=== PATIENT | female | born 1960 | race Caucasian/White ===

== ENCOUNTER 2025-02-16 15:02 | Inpatient (IN) ==
[2025-02-16 15:36] VITALS: BMI 45.5
--- NOTE | 2025-02-16 15:41 | RAD ---
EXAM: CHEST, 1 VIEW HISTORY: CHEST PAIN; COMPARISON: None. TECHNIQUE: Chest x-ray single frontal view FINDINGS: Heart size and mediastinal contours are normal. The aorta maintains a tortuous configuration. Lungs are clear as are the pleural spaces. No free air or pneumothorax. No acute bony abnormality. Multilevel bridging osteophytes of the spine are typical of diffuse idiopathic skeletal hyperostosis. IMPRESSION: No acute radiographic abnormalities of the chest THIS IS AN ELECTRONICALLY VERIFIED FINAL REPORT 02/16/2025 3:37 PM - Electronically signed by Mark Saxena MD
--- NOTE | 2025-02-16 15:56 | EKG ---
Test Reason : pre-op Blood Pressure : */* mmHG Vent. Rate : 85 BPM Atrial Rate : 85 BPM P-R Int : 162 ms QRS Dur : 82 ms QT Int : 358 ms P-R-T Axes : 32 -31 26 degrees QTc Int : 426 ms Normal sinus rhythm Left axis deviation Minimal voltage criteria for LVH, may be normal variant ( R in aVL ) Anterolateral infarct , age undetermined Abnormal ECG No previous ECGs available Confirmed by William Hall MD ([id number]) on 02/16/2025 4:06:07 PM Referred By: Confirmed By: William Hall MD
[2025-02-16] MEDS: NS 250 ML IV 25 ML IV PRN (15:59)
[2025-02-16] MEDS: ZOSYN VIAL 3.375 GRAMS 3.375 G in NS 100 ML IV 100 ML IV ONE (15:59)
[2025-02-16 16:18] LABS: BASOPHILS # (AUTO) 0.1 X10^3/uL (0.0-0.1); BASOPHILS % (AUTO) 0.9 % (0.2-1.0); EOSINOPHILS # (AUTO) 0.6 x10^3/uL (0.0-0.2); EOSINOPHILS % (AUTO) 3.4 % (0.9-2.9); HEMATOCRIT 43.8 % (36.0-47.0); HEMOGLOBIN 14.4 g/dL (12.0-16.0); LYMPHOCYTES # (AUTO) 2.4 X10^3/uL (1.3-2.9); LYMPHOCYTES % (AUTO) 14.5 % (21.0-51.0); MEAN CORPUSCULAR HEMOGLOBIN 30.3 pg (27.0-34.0); MEAN CORPUSCULAR HGB CONC 32.9 g/dL (33.0-35.0); MEAN CORPUSCULAR VOLUME 92.1 fL (80.0-100.0); MEAN PLATELET VOLUME 8.2 fL (7.4-11.0); MONOCYTES % (AUTO) 6.3 % (0.0-13.0); NEUTROPHILS # (AUTO) 12.3 x10^3/uL (2.2-4.8); NEUTROPHILS % (AUTO) 74.9 % (42.0-75.0); PLATELET COUNT 312 X10^3/uL (150.0-450.0); RED BLOOD COUNT 4.76 X10^6/uL (3.5-5.4); RED CELL DISTRIBUTION WIDTH 14.9 % (11.6-16.5); WHITE BLOOD COUNT 16.4 X10^3/uL (3.6-10.0)
[2025-02-16 16:24] LABS: INR 1.06 (0.8-1.3)
[2025-02-16 16:29] LABS: ALANINE AMINOTRANSFERASE 30 Units/L (12-78); ALBUMIN 2.6 g/dL (3.4-5.0); ALKALINE PHOSPHATASE 103 Units/L (46-116); ASPARTATE AMINO TRANSFERASE 15 Units/L (15-37); BLOOD UREA NITROGEN 14 mg/dL (7-18); CALCIUM 9.3 mg/dL (8.5-10.1); CARBON DIOXIDE 27.2 mmol/L (21-32); CHLORIDE 99 mmol/L (98-107); COR CA(FOR HYPOALB) 10.4 mg/dL (8.5-10.1); COR NA(FOR HYPERGLY) 137 mmol/L (136-145); GLUCOSE 122 mg/dL (65-99); POTASSIUM 4.7 mmol/L (3.5-5.1); SODIUM 136 mmol/L (136-145); TOTAL PROTEIN 7.8 g/dL (6.4-8.2); eGFR NON BLACK RACES 53 (>60)
[2025-02-16 16:47] LABS: PLATELET MORPHOLOGY COMMENT NORMAL (NORMAL)
--- NOTE | 2025-02-16 17:32 | ED.ABDFE ---
HPI Time Seen Time Seen by Provider: 02/16/25 15:09 PCP Primary Care Physician: Luz Marina Shetty Complaint Doctors Chief Complaint Comments: 64 yo F, hx diveritculitis, had CT as outpt after having abd pain for 1 wk. PCP called pt told her she had free air in her abd, likely ruptured diverticulitis according to CT, advised to come straight to the ER. Chief Complaint:: Pt c/o LLQ pain that started on Thursday, she saw PCP on Thursday, treated for diverticulosis with cipro and tramadol. Pt describes pain as "excrutiating pain like I'm about to explode, constant," /, N/D, constipation, "sharp, stabbing" Self Treatment fo Chief Complaint: Pt only took 3 days of cipro d/t made her start vomiting, tramadol was not effective for pain relief COVID-19 Coronavirus risk:travel/contact w/high risk person: No Has patient experienced Coronavirus symptoms: No Source History Provided: Patient and Other Mode of arrival Mode of Arrival: Ambulatory Timing Onset of Chief Complaint: 02/10/25 PMH PMH Past Medical History: Yes Past Medical History: Diabetes, Dyslipidemia, Hypertension and Hypothyroidism Past Medical History Comment: diverticulosis Past Surgical History: Yes Surgical History: Ortho Surgery Family History History of Family Medical Conditions: Yes Family Medical History: Diabetes Mellitus and Hypertension Social History Does patient currently use any type of tobacco product: No Have you used tobacco products in the last 12 months: No Type of Tobacco Use: None Does any household member use tobacco: No Alcohol Use: None Do you use any recreational Drugs:: No Lives With: Spouse Lives Where: Home Travel Risk Coronavirus risk:travel/contact w/high risk person: No Has patient experienced Coronavirus symptoms: No Infectious screening In the last 2 months have you had wt loss of >10#?: NO Have you had fever, night sweats or hemotysis?: No Have you traveled outside the country in the last 6 months?: No Isolation: Standard ROS Review of Systems Constitutional: Chills; negative Fever Gastrointestinal/Abdominal: Abdominal Pain PE Vital Signs Vitals: Vital Signs Temperature 98.9 F Pulse Rate 69 Respiratory Rate 15 Blood Pressure 138/65 Blood Pressure 168/79 Blood Pressure 110/68 O2 Sat by Pulse Oximetry 100 General Limitations: No Limitations and Language Barrier General Appearance: Alert and In No Apparent Distress Head Head Exam: Normal Inspection Eyes Eye exam: Normal Appearance ENT ENT Exam: Normal Exam Neck Neck Exam: Normal Inspection Chest Chest Inspection: Normal Inspection Respiratory Respiratory Exam: Normal Lung Sounds Bilat Cardiovascular Cardiovascular Exam: Regular Rate and Normal Rhythm Abdominal Exam Abdominal Exam: Other (diffuse tenderness, tympanitic, +guarding and rebound) Rectal Rectal Exam: Deferred Back Back Exam: Normal Inspection Extremeties Extremities Exam: Normal Inspection Neurologic Neurological Exam: Alert and Oriented X3 Psychiatric Psychiatric Exam: Normal Affect and Normal Mood Skin Skin Exam: Warm, Dry and Intact ROR Labs Reviewed 02/16/25 16:00 02/16/25 16:00 Laboratory: WBC 16.4 X10^3/uL (3.6-10.0) H 02/16/25 16:00 RBC 4.76 X10^6/uL (3.5-5.4) 02/16/25 16:00 Hgb 14.4 g/dL (12.0-16.0) 02/16/25 16:00 Hct 43.8 % (36.0-47.0) 02/16/25 16:00 MCV 92.1 fL (80.0-100.0) 02/16/25 16:00 MCH 30.3 pg (27.0-34.0) 02/16/25 16:00 MCHC 32.9 g/dL (33.0-35.0) L 02/16/25 16:00 RDW 14.9 % (11.6-16.5) 02/16/25 16:00 Plt Count 312 X10^3/uL (150.0-450.0) 02/16/25 16:00 Plt Count Comment Adequate (ADEQUATE) 02/16/25 16:00 MPV 8.2 fL (7.4-11.0) 02/16/25 16:00 Neut % (Auto) 74.9 % (42.0-75.0) 02/16/25 16:00 Lymph % (Auto) 14.5 % (21.0-51.0) L 02/16/25 16:00 [place] % (Auto) 6.3 % (0.0-13.0) 02/16/25 16:00 Eos % (Auto) 3.4 % (0.9-2.9) H 02/16/25 16:00 Baso % (Auto) 0.9 % (0.2-1.0) 02/16/25 16:00 Neut # (Auto) 12.3 x10^3/uL (2.2-4.8) H 02/16/25 16:00 Lymph # (Auto) 2.4 X10^3/uL (1.3-2.9) 02/16/25 16:00 [place] # (Auto) 1.0 x10^3/uL (0.3-0.8) H 02/16/25 16:00 Eos # (Auto) 0.6 x10^3/uL (0.0-0.2) H 02/16/25 16:00 Baso # (Auto) 0.1 X10^3/uL (0.0-0.1) 02/16/25 16:00 Absolute Nucleated RBC 0.0 /100WBC 02/16/25 16:00 Total Counted 100 02/16/25 16:00 Neutrophils % (Manual) 80 % (39-76) H 02/16/25 16:00 Lymphocytes % (Manual) 14 % (13-43) 02/16/25 16:00 Monocytes % (Manual) 4 % (4-9) 02/16/25 16:00 Eosinophils % (Manual) 2 % (0-6) 02/16/25 16:00 Plt Morphology Comment Normal (NORMAL) 02/16/25 16:00 RBC Morphology Normal (NORMAL) 02/16/25 16:00 PT 13.6 SECONDS (11.8-14.3) 02/16/25 16:00 INR Target Range - 02/16/25 16:00 INR 1.06 (0.8-1.3) 02/16/25 16:00 APTT 26.1 SECONDS (22.9-36.5) 02/16/25 16:00 PTT Comment - 02/16/25 16:00 Sodium 136 mmol/L (136-145) 02/16/25 16:00 Corrected Sodium 137 mmol/L (136-145) 02/16/25 16:00 Potassium 4.7 mmol/L (3.5-5.1) 02/16/25 16:00 Chloride 99 mmol/L (98-107) 02/16/25 16:00 Carbon Dioxide 27.2 mmol/L (21-32) 02/16/25 16:00 BUN 14 mg/dL (7-18) 02/16/25 16:00 Creatinine 1.10 mg/dL (0.55-1.02) H 02/16/25 16:00 Est GFR (MDRD) Af Amer > 60 (>60) 02/16/25 16:00 Est GFR (MDRD) Non-Af 53 (>60) L 02/16/25 16:00 Glucose 122 mg/dL (65-99) H 02/16/25 16:00 Lactic Acid 1.1 mmol/L (0.4-2.0) 02/16/25 16:00 Calcium 9.3 mg/dL (8.5-10.1) 02/16/25 16:00 Corrected Calcium 10.4 mg/dL (8.5-10.1) H 02/16/25 16:00 Total Bilirubin 0.30 mg/dL (0.2-1.0) 02/16/25 16:00 AST 15 Units/L (15-37) 02/16/25 16:00 ALT 30 Units/L (12-78) 02/16/25 16:00 Alkaline Phosphatase 103 Units/L (46-116) 02/16/25 16:00 Total Protein 7.8 g/dL (6.4-8.2) 02/16/25 16:00 Albumin 2.6 g/dL (3.4-5.0) L 02/16/25 16:00 Globulin 5.2 g/dL (2.5-4.5) H 02/16/25 16:00 Albumin/Globulin Ratio 0.5 Ratio (1.1-2.1) L 02/16/25 16:00 Blood Type A POSITIVE 02/16/25 16:00 Antibody Screen Negative 02/16/25 16:00 Opioid Opioid Risk Tool Age (Taiwo box if 16-45): No History of Preadolescent Sexual Abuse: No Total: 0 Total Score Risk Category: Low Risk Copyright: Shawn CONNELLY predicting aberrant behaviors Discharge Plan Diagnosis Discharge Problem: Perforated diverticulum, Diverticulitis Discharge Plan Patient Disposition: 01 HOME, SELF-CARE Condition: Stable Prescriptions: No Action multivitamin Tablet 1 tab PO DAILY calcium 600 mg Capsule 600 mg PO BID albuterol sulfate 2.5 mg /3 mL (0.083 %) Solution For Nebulization 2.5 mg inhalation Q6H PRN citalopram [Celexa] 40 mg Tablet 40 mg PO DAILY promethazine 12.5 mg Tablet 12.5 mg PO Q6H PRN spironolactone 25 mg Tablet 25 mg PO DAILY carvedilol 3.125 mg Tablet 3.125 mg PO BID alprazolam [Xanax] 0.5 mg Tablet 0.5 mg PO BID PRN pantoprazole 40 mg Tablet,Delayed Release (Dr/Ec) 40 mg PO DAILY budesonide 0.5 mg/2 mL Suspension For Nebulization 0.25 mg inhalation BID bumetanide 1 mg Tablet 1 mg PO DAILY PRN montelukast 10 mg Tablet 10 mg PO HS albuterol 90 mcg/actuation Aerosol 90 mcg INHALATION Q6H PRN insulin lispro [Humalog KwikPen Insulin] 100 unit/mL Insulin Pen See Rx Instructions .ROUTE .COMPLEX Rx Instructions: take as directed cyclobenzaprine 5 mg Tablet 5 mg PO HS PRN Fish Oil 1,000 mg Capsule 1 cap PO BID rosuvastatin 10 mg tablet 10 mg PO QPM biotin 1 mg Tablet 1 mg PO DAILY cholecalciferol (vitamin D3) 50 mcg (2,000 unit) Capsule 50 mcg PO DAILY insulin degludec [Tresiba FlexTouch U-100] 100 unit/mL (3 mL) Insulin Pen 30 unit SUBCUT DAILY Jardiance 25 mg Tablet 25 mg PO DAILY ciprofloxacin HCl 500 mg tablet 500 mg PO BID Rx Instructions: started on 02/09/25 tramadol 50 mg tablet 50 mg PO Q8H PRN (Reason: pain) losartan 100 mg Tablet 100 mg PO DAILY insulin lispro 100 unit/mL insulin pen 10 unit SUBCUT TID thyroid (pork) [[place] Thyroid] 60 mg tablet 60 mg PO QAM Health Concerns: Post Hospitalization: new medications and changes needed to prevent readmission or further decline. Pt educated and given instructions on all concerns. Plan of Treatment: Continue with present treatment and follow up plan. Pt is to keep follow up appointment as instructed and take medications as ordered. Orders to Discharge Patient Discharge Orders: Transfer (Routine); Ordered 02/16/25 Ordered By: Ricco Forbes Follow ups/Referrals Follow ups/Referrals: LUZ MARINA SHETTY [Primary Care Provider] - 3 days Instructions Stand Alone Forms: Find Help Web Site, Post Hospital Follow Up Care
[2025-02-16] MEDS ORDERED: NS 250 ML IV 25 ML IV PRN (17:46)
[2025-02-16] MEDS ORDERED: BUMEX TAB 1 MG PO PRN (17:46)
[2025-02-16] MEDS ORDERED: PATIENT'S HOME MEDICATION (Alprazolam [Xanax] 0.5 mg Tablet) PO PRN (17:46)
[2025-02-16] MEDS: D5 1/2 NS 1,000 ML 1,000 ML IV SCH (18:28)
[2025-02-16] MEDS: FLAGYL IV PREMIX 500 MG BAG 500 MG/100 ML BAG IV SCH (18:28)
[2025-02-16] MEDS ORDERED: ALPRAZOLAM ODT PO PRN (19:26)
[2025-02-16] MEDS: PULMICORT NEB TX 0.5 MG NEB SCH (20:04)
[2025-02-16] MEDS: CALCIUM 600 MG PO SCH (20:16)
[2025-02-16] MEDS: MORPHINE SULFATE INJ 2 MG INJ IVP PRN (20:37)
[2025-02-16] MEDS: ZOFRAN INJ 4 MG VIAL IVP PRN (20:41)
[2025-02-16] MEDS: SINGULAIR TAB 10 MG PO SCH (20:46)
[2025-02-16] MEDS: COREG TAB 3.125 MG PO SCH (20:46)
[2025-02-16] MEDS: CRESTOR TAB 10 MG PO SCH (20:46)
[2025-02-16] MEDS ORDERED: PATIENT'S HOME MEDICATION (Insulin Lispro 100 unit/mL insulin pen) SUBCUT SCH (22:00)
[2025-02-16] MEDS: ZOSYN VIAL 2.25 GRAMS 2.25 G in NS 100 ML IV 100 ML IV SCH (23:00)
--- NOTE | 2025-02-17 05:22 | RAD ---
PROCEDURE: Abdomen 1 View.HISTORY: INTRA-ABDOMINAL FREE AIR ; DM, HTN SX: ORTHO .TECHNIQUE: AP supine view of the abdomen.COMPARISON: None.TECHNICAL QUALITY: Satisfactory.FINDINGS:Mild gas and feces throughout colon. No obstruction or ileus.No organomegaly.No abnormal calcifications.IMPRESSION:Nonspecific bowel gas pattern.THIS IS AN ELECTRONICALLY VERIFIED FINAL REPORT02/17/2025 5:19 AM - Electronically signed by Sidney Damico MD
[2025-02-17 05:47] LABS: BASOPHILS # (AUTO) 0.1 X10^3/uL (0.0-0.1); BASOPHILS % (AUTO) 0.5 % (0.2-1.0); EOSINOPHILS # (AUTO) 0.4 x10^3/uL (0.0-0.2); EOSINOPHILS % (AUTO) 2.4 % (0.9-2.9); HEMOGLOBIN 12.7 g/dL (12.0-16.0); LYMPHOCYTES # (AUTO) 2.3 X10^3/uL (1.3-2.9); LYMPHOCYTES % (AUTO) 15.7 % (21.0-51.0); MEAN CORPUSCULAR HEMOGLOBIN 30.5 pg (27.0-34.0); MEAN CORPUSCULAR HGB CONC 33.3 g/dL (33.0-35.0); MEAN CORPUSCULAR VOLUME 91.6 fL (80.0-100.0); MEAN PLATELET VOLUME 8.2 fL (7.4-11.0); MONOCYTES # (AUTO) 1.2 x10^3/uL (0.3-0.8); MONOCYTES % (AUTO) 8.2 % (0.0-13.0); NEUTROPHILS # (AUTO) 10.9 x10^3/uL (2.2-4.8); NEUTROPHILS % (AUTO) 73.2 % (42.0-75.0); PLATELET COUNT 288 X10^3/uL (150.0-450.0); RED BLOOD COUNT 4.15 X10^6/uL (3.5-5.4); RED CELL DISTRIBUTION WIDTH 14.9 % (11.6-16.5); WHITE BLOOD COUNT 14.9 X10^3/uL (3.6-10.0)
[2025-02-17 06:05] LABS: ALANINE AMINOTRANSFERASE 21 Units/L (12-78); ALKALINE PHOSPHATASE 84 Units/L (46-116); ASPARTATE AMINO TRANSFERASE 18 Units/L (15-37); BLOOD UREA NITROGEN 11 mg/dL (7-18); CALCIUM 8.9 mg/dL (8.5-10.1); CARBON DIOXIDE 24.6 mmol/L (21-32); CHLORIDE 102 mmol/L (98-107); COR CA(FOR HYPOALB) 10.5 mg/dL (8.5-10.1); COR NA(FOR HYPERGLY) 137 mmol/L (136-145); GLUCOSE 148 mg/dL (65-99); POTASSIUM 4.6 mmol/L (3.5-5.1); SODIUM 136 mmol/L (136-145); TOTAL PROTEIN 6.6 g/dL (6.4-8.2); eGFR NON BLACK RACES > 60 (>60)
[2025-02-17] MEDS: PULMICORT NEB TX 0.5 MG NEB ONE (07:57)
[2025-02-17] MEDS: HumaLOG SC SCH (07:58)
--- NOTE | 2025-02-17 08:15 | DR.PROGNOT ---
HOSPITAL PROGRESS NOTE Progress Note for Day of: Progress Note Date: 02/17/25 Chief Complaint Chief Complaint: less abdominal pain today , c/o nausea , no vomiting . no BM today . KUB showed no free air . WBC 14.9, Glucose 148 , Ca 10.4 , normal BUN/Creat . afebrile . LLQ tenderness with mild rebound .. BS hypoactive . Past Medical Family Social History Allergies: Allergies exenatide [From Bydureon BCise] Allergy (Verified 02/16/25 15:11) levothyroxine sodium [From Synthroid] Allergy (Verified 02/16/25 15:11) lisinopril Allergy (Verified 02/16/25 15:11) metformin Allergy (Verified 02/16/25 15:11) nitrofurantoin [From Macrodantin] Allergy (Verified 02/16/25 15:11) semaglutide [From Rybelsus] Allergy (Verified 02/16/25 15:11) sitagliptin [From Januvia] Allergy (Verified 02/16/25 15:11) Sulfa (Sulfonamide Antibiotics) [SULFA] Allergy (Verified 02/16/25 15:11) zolpidem [From Ambien] Allergy (Verified 02/16/25 15:11) liraglutide [From Victoza] Adverse Reaction (Verified 02/16/25 15:11) Vital Signs Vital Signs: Vital Signs Temperature 98.1 F Pulse Rate 76 Pulse Rate 95 Pulse Rate 77 Pulse Rate 78 Pulse Rate 78 Pulse Rate 77 Pulse Rate 79 Pulse Rate 79 Pulse Rate 75 Pulse Rate 81 Pulse Rate 83 Pulse Rate 81 Pulse Rate 81 Pulse Rate 81 Pulse Rate 81 Pulse Rate 84 Pulse Rate 84 Pulse Rate 83 Pulse Rate 88 Pulse Rate 88 Pulse Rate 87 Respiratory Rate 13 Respiratory Rate 32 Respiratory Rate 16 Respiratory Rate 20 Respiratory Rate 22 Respiratory Rate 16 Respiratory Rate 19 Respiratory Rate 15 Respiratory Rate 15 Respiratory Rate 12 Respiratory Rate 20 Respiratory Rate 17 Respiratory Rate 15 Respiratory Rate 16 Respiratory Rate 18 Respiratory Rate 18 Respiratory Rate 17 Respiratory Rate 15 Respiratory Rate 35 Respiratory Rate 21 Respiratory Rate 16 Blood Pressure 116/53 O2 Sat by Pulse Oximetry 96 O2 Sat by Pulse Oximetry 97 O2 Sat by Pulse Oximetry 94 O2 Sat by Pulse Oximetry 94 O2 Sat by Pulse Oximetry 93 O2 Sat by Pulse Oximetry 93 O2 Sat by Pulse Oximetry 92 O2 Sat by Pulse Oximetry 94 O2 Sat by Pulse Oximetry 93 O2 Sat by Pulse Oximetry 95 O2 Sat by Pulse Oximetry 94 O2 Sat by Pulse Oximetry 92 O2 Sat by Pulse Oximetry 93 O2 Sat by Pulse Oximetry 93 O2 Sat by Pulse Oximetry 93 O2 Sat by Pulse Oximetry 93 O2 Sat by Pulse Oximetry 92 O2 Sat by Pulse Oximetry 93 O2 Sat by Pulse Oximetry 92 O2 Sat by Pulse Oximetry 92 O2 Sat by Pulse Oximetry 92 Physical Exam Oriented: Normal Eyes: Normal Ear: Normal Nose: Normal Throat: Normal Respiratory: Normal Cardiovascular: Normal GI:Auscultation: Decreased GI: Tenderness: LLQ (mild rebound .) Speech Pattern: Clear and Appropriate Laboratory and Diagnostics 02/17/25 05:10 02/17/25 05:10 Labs: Laboratory WBC 14.9 X10^3/uL (3.6-10.0) H 02/17/25 05:10 RBC 4.15 X10^6/uL (3.5-5.4) 02/17/25 05:10 Hgb 12.7 g/dL (12.0-16.0) 02/17/25 05:10 Hct 38.0 % (36.0-47.0) 02/17/25 05:10 MCV 91.6 fL (80.0-100.0) 02/17/25 05:10 MCH 30.5 pg (27.0-34.0) 02/17/25 05:10 MCHC 33.3 g/dL (33.0-35.0) 02/17/25 05:10 RDW 14.9 % (11.6-16.5) 02/17/25 05:10 Plt Count 288 X10^3/uL (150.0-450.0) 02/17/25 05:10 Plt Count Comment Adequate (ADEQUATE) 02/16/25 16:00 MPV 8.2 fL (7.4-11.0) 02/17/25 05:10 Neut % (Auto) 73.2 % (42.0-75.0) 02/17/25 05:10 Lymph % (Auto) 15.7 % (21.0-51.0) L 02/17/25 05:10 [place] % (Auto) 8.2 % (0.0-13.0) 02/17/25 05:10 Eos % (Auto) 2.4 % (0.9-2.9) 02/17/25 05:10 Baso % (Auto) 0.5 % (0.2-1.0) 02/17/25 05:10 Neut # (Auto) 10.9 x10^3/uL (2.2-4.8) H 02/17/25 05:10 Lymph # (Auto) 2.3 X10^3/uL (1.3-2.9) 02/17/25 05:10 [place] # (Auto) 1.2 x10^3/uL (0.3-0.8) H 02/17/25 05:10 Eos # (Auto) 0.4 x10^3/uL (0.0-0.2) H 02/17/25 05:10 Baso # (Auto) 0.1 X10^3/uL (0.0-0.1) 02/17/25 05:10 Absolute Nucleated RBC 0.0 /100WBC 02/17/25 05:10 Total Counted 100 02/16/25 16:00 Neutrophils % (Manual) 80 % (39-76) H 02/16/25 16:00 Lymphocytes % (Manual) 14 % (13-43) 02/16/25 16:00 Monocytes % (Manual) 4 % (4-9) 02/16/25 16:00 Eosinophils % (Manual) 2 % (0-6) 02/16/25 16:00 Plt Morphology Comment Normal (NORMAL) 02/16/25 16:00 RBC Morphology Normal (NORMAL) 02/16/25 16:00 PT 13.6 SECONDS (11.8-14.3) 02/16/25 16:00 INR Target Range - 02/16/25 16:00 INR 1.06 (0.8-1.3) 02/16/25 16:00 APTT 26.1 SECONDS (22.9-36.5) 02/16/25 16:00 PTT Comment - 02/16/25 16:00 Sodium 136 mmol/L (136-145) 02/17/25 05:10 Corrected Sodium 137 mmol/L (136-145) 02/17/25 05:10 Potassium 4.6 mmol/L (3.5-5.1) 02/17/25 05:10 Chloride 102 mmol/L (98-107) 02/17/25 05:10 Carbon Dioxide 24.6 mmol/L (21-32) 02/17/25 05:10 BUN 11 mg/dL (7-18) 02/17/25 05:10 Creatinine 0.90 mg/dL (0.55-1.02) 02/17/25 05:10 Est GFR (MDRD) Af Amer > 60 (>60) 02/17/25 05:10 Est GFR (MDRD) Non-Af > 60 (>60) 02/17/25 05:10 Glucose 148 mg/dL (65-99) H 02/17/25 05:10 POC Glucose (mg/dL) 142 mg/dL (65-99) H 02/17/25 04:58 Lactic Acid 1.1 mmol/L (0.4-2.0) 02/16/25 16:00 Calcium 8.9 mg/dL (8.5-10.1) 02/17/25 05:10 Corrected Calcium 10.5 mg/dL (8.5-10.1) H 02/17/25 05:10 Magnesium 2.0 mg/dL (2.0-2.9) 02/17/25 05:10 Total Bilirubin 0.20 mg/dL (0.2-1.0) 02/17/25 05:10 AST 18 Units/L (15-37) 02/17/25 05:10 ALT 21 Units/L (12-78) 02/17/25 05:10 Alkaline Phosphatase 84 Units/L (46-116) 02/17/25 05:10 Total Protein 6.6 g/dL (6.4-8.2) 02/17/25 05:10 Albumin 2.0 g/dL (3.4-5.0) L 02/17/25 05:10 Globulin 4.6 g/dL (2.5-4.5) H 02/17/25 05:10 Albumin/Globulin Ratio 0.4 Ratio (1.1-2.1) L 02/17/25 05:10 Blood Type A POSITIVE 02/16/25 16:00 Antibody Screen Negative 02/16/25 16:00 Assessment and Plan 1: acute ruptured diverticulitis , seems to be improving . same IV ABT , NPO , IVF Problem Patient Problems: Patient Problems (Updated 02/16/25 @ 17:30 by Ricco Forbes) Perforated diverticulum (Acute) K57.80 Diverticulitis (Acute) K57.92
[2025-02-17] MEDS: CELEXA PO SCH (08:40)
[2025-02-17] MEDS: PROTONIX INJ 40 MG VIAL IVP SCH (08:40)
[2025-02-17] MEDS: COZAAR PO SCH (08:40)
[2025-02-17] MEDS: ALDACTONE TAB 25 MG PO SCH (08:40)
[2025-02-17] MEDS: LOVENOX INJ 40 MG SYR SC SCH (08:41)
[2025-02-17] MEDS ORDERED: PATIENT'S HOME MEDICATION (Losartan 100 mg Tablet) PO SCH (09:00)
[2025-02-17] MEDS: PATIENT'S HOME MEDICATION (Empagliflozin [Jardiance] 25 mg Tablet) PO SCH (09:00)
[2025-02-17] MEDS ORDERED: BIOTIN 1 MG PO SCH (09:00)
[2025-02-17] MEDS ORDERED: PROTONIX TAB 40 MG PO SCH (09:00)
[2025-02-17] MEDS: PATIENT'S HOME MEDICATION (Insulin Degludec [Tresiba Flextouch U-100] 100 unit/mL (3 mL) I SUBCUT SCH (09:01)
[2025-02-17] MEDS: THYROID 60 MG PO SCH (10:24)
--- NOTE | 2025-02-17 14:07 | DR.H&P ---
H&P History & Physical for Day of: H&P Date: 02/17/25 Chief Complaint Chief Complaint: LLQ pain History of Present Illness History of Present Illness: Patient with moderate to severe left lower quadrant pain was sent by her PCP to get an outpatient CT. PCP get later called patient and sent her to the ER for evaluation by surgery due to concern about a person diverticulum. Surgery was consulted in the ER and advised admission with medical management for now. Did not seem to have a surgical abdomen. She does still have moderate to severe left lower quadrant pain but feeling better overall. Denies any other complaints at this time. ROS: 12 point ROS negative except as noted in HPI. PE: Well-developed, well-nourished, obese female in no acute distress. Hearing intact conversation, head NCAT, extraocular movements grossly normal, trachea midline. Heart regular rate and rhythm. Lungs clear bilaterally with unlabored respirations. Belly is soft with tenderness in the left lower quadrant. No masses or ascites. Moves all extremities equally well. Past Medical History Past Medical History: Diabetes, Dyslipidemia, Hypertension and Hypothyroidism Past Surgical History Surgical History: Ortho Surgery Family History Family Medical History: Diabetes Mellitus and Hypertension Social History Does patient currently use any type of tobacco product: No Have you used tobacco products in the last 12 months: No Type of Tobacco Use: None Does any household member use tobacco: No Alcohol Use: None Drug Use: None Medications Home Medications: Home Medications Medication Instructions Recorded Confirmed Type albuterol 90 mcg/actuation aerosol 90 mcg inhalation Q6H PRN 02/16/25 02/16/25 History inhaler albuterol sulfate 2.5 mg/3 mL 2.5 mg inhalation Q6H PRN 02/16/25 02/16/25 History (0.083 %) solution for nebulization alprazolam 0.5 mg tablet (Xanax) 0.5 mg PO BID PRN 02/16/25 02/16/25 History biotin 1 mg tablet 1 mg PO DAILY 02/16/25 02/16/25 History budesonide 0.5 mg/2 mL suspension 0.25 mg inhalation BID 02/16/25 02/16/25 History for nebulization bumetanide 1 mg tablet 1 mg PO DAILY PRN 02/16/25 02/16/25 History calcium 600 mg capsule 600 mg PO BID 02/16/25 02/16/25 History carvedilol 3.125 mg tablet 3.125 mg PO BID 02/16/25 02/16/25 History cholecalciferol (vitamin D3) 50 50 mcg PO DAILY 02/16/25 02/16/25 History mcg (2,000 unit) capsule ciprofloxacin HCl 500 mg tablet 500 mg PO BID 02/16/25 02/16/25 History citalopram 40 mg tablet (Celexa) 40 mg PO DAILY 02/16/25 02/16/25 History cyclobenzaprine 5 mg tablet 5 mg PO HS PRN 02/16/25 02/16/25 History empagliflozin 25 mg tablet 25 mg PO DAILY 02/16/25 02/16/25 History (Jardiance) insulin degludec 100 unit/mL (3 30 unit subcut DAILY 02/16/25 02/16/25 History mL) subcutaneous pen (Tresiba FlexTouch U-100 insulin) insulin lispro 100 unit/mL 10 unit subcut TID 02/16/25 02/16/25 History subcutaneous pen insulin lispro 100 unit/mL See Rx Instructions .Route .COMPLEX 02/16/25 02/16/25 History subcutaneous pen (Humalog KwikPen (U-100) Insulin) losartan 100 mg tablet 100 mg PO DAILY 02/16/25 02/16/25 History montelukast 10 mg tablet 10 mg PO HS 02/16/25 02/16/25 History multivitamin 1 tab PO DAILY 02/16/25 02/16/25 History omega-3 fatty acids-vitamin E 1 cap PO BID 02/16/25 02/16/25 History 1,000 mg capsule pantoprazole 40 mg tablet,delayed 40 mg PO DAILY 02/16/25 02/16/25 History release promethazine 12.5 mg tablet 12.5 mg PO Q6H PRN 02/16/25 02/16/25 History rosuvastatin 10 mg tablet 10 mg PO QPM cholesterol 02/16/25 02/16/25 History spironolactone 25 mg tablet 25 mg PO DAILY 02/16/25 02/16/25 History thyroid (pork) 60 mg tablet 60 mg PO QAM 02/16/25 02/16/25 History (Harvey Thyroid) tramadol 50 mg tablet 50 mg PO Q8H PRN pain 02/16/25 02/16/25 History Allergies Allergies Allergy/AdvReac Type Severity Reaction Status Date / Time exenatide Allergy Verified 02/16/25 15:11 [From Bydureon BCise] levothyroxine sodium Allergy Verified 02/16/25 15:11 [From Synthroid] lisinopril Allergy Verified 02/16/25 15:11 metformin Allergy Verified 02/16/25 15:11 nitrofurantoin Allergy Verified 02/16/25 15:11 [From Macrodantin] semaglutide [From Rybelsus] Allergy Verified 02/16/25 15:11 sitagliptin [From Januvia] Allergy Verified 02/16/25 15:11 Sulfa (Sulfonamide Allergy Verified 02/16/25 15:11 Antibiotics) [SULFA] zolpidem [From Ambien] Allergy Verified 02/16/25 15:11 liraglutide [From Victoza] AdvReac Verified 02/16/25 15:11 Labs 02/17/25 05:10 02/17/25 05:10 Labs: Laboratory WBC 14.9 X10^3/uL (3.6-10.0) H 02/17/25 05:10 RBC 4.15 X10^6/uL (3.5-5.4) 02/17/25 05:10 Hgb 12.7 g/dL (12.0-16.0) 02/17/25 05:10 Hct 38.0 % (36.0-47.0) 02/17/25 05:10 MCV 91.6 fL (80.0-100.0) 02/17/25 05:10 MCH 30.5 pg (27.0-34.0) 02/17/25 05:10 MCHC 33.3 g/dL (33.0-35.0) 02/17/25 05:10 RDW 14.9 % (11.6-16.5) 02/17/25 05:10 Plt Count 288 X10^3/uL (150.0-450.0) 02/17/25 05:10 Plt Count Comment Adequate (ADEQUATE) 02/16/25 16:00 MPV 8.2 fL (7.4-11.0) 02/17/25 05:10 Neut % (Auto) 73.2 % (42.0-75.0) 02/17/25 05:10 Lymph % (Auto) 15.7 % (21.0-51.0) L 02/17/25 05:10 [place] % (Auto) 8.2 % (0.0-13.0) 02/17/25 05:10 Eos % (Auto) 2.4 % (0.9-2.9) 02/17/25 05:10 Baso % (Auto) 0.5 % (0.2-1.0) 02/17/25 05:10 Neut # (Auto) 10.9 x10^3/uL (2.2-4.8) H 02/17/25 05:10 Lymph # (Auto) 2.3 X10^3/uL (1.3-2.9) 02/17/25 05:10 [place] # (Auto) 1.2 x10^3/uL (0.3-0.8) H 02/17/25 05:10 Eos # (Auto) 0.4 x10^3/uL (0.0-0.2) H 02/17/25 05:10 Baso # (Auto) 0.1 X10^3/uL (0.0-0.1) 02/17/25 05:10 Absolute Nucleated RBC 0.0 /100WBC 02/17/25 05:10 Total Counted 100 02/16/25 16:00 Neutrophils % (Manual) 80 % (39-76) H 02/16/25 16:00 Lymphocytes % (Manual) 14 % (13-43) 02/16/25 16:00 Monocytes % (Manual) 4 % (4-9) 02/16/25 16:00 Eosinophils % (Manual) 2 % (0-6) 02/16/25 16:00 Plt Morphology Comment Normal (NORMAL) 02/16/25 16:00 RBC Morphology Normal (NORMAL) 02/16/25 16:00 PT 13.6 SECONDS (11.8-14.3) 02/16/25 16:00 INR Target Range - 02/16/25 16:00 INR 1.06 (0.8-1.3) 02/16/25 16:00 APTT 26.1 SECONDS (22.9-36.5) 02/16/25 16:00 PTT Comment - 02/16/25 16:00 Sodium 136 mmol/L (136-145) 02/17/25 05:10 Corrected Sodium 137 mmol/L (136-145) 02/17/25 05:10 Potassium 4.6 mmol/L (3.5-5.1) 02/17/25 05:10 Chloride 102 mmol/L (98-107) 02/17/25 05:10 Carbon Dioxide 24.6 mmol/L (21-32) 02/17/25 05:10 BUN 11 mg/dL (7-18) 02/17/25 05:10 Creatinine 0.90 mg/dL (0.55-1.02) 02/17/25 05:10 Est GFR (MDRD) Af Amer > 60 (>60) 02/17/25 05:10 Est GFR (MDRD) Non-Af > 60 (>60) 02/17/25 05:10 Glucose 148 mg/dL (65-99) H 02/17/25 05:10 POC Glucose (mg/dL) 142 mg/dL (65-99) H 02/17/25 04:58 Lactic Acid 1.1 mmol/L (0.4-2.0) 02/16/25 16:00 Calcium 8.9 mg/dL (8.5-10.1) 02/17/25 05:10 Corrected Calcium 10.5 mg/dL (8.5-10.1) H 02/17/25 05:10 Magnesium 2.0 mg/dL (2.0-2.9) 02/17/25 05:10 Total Bilirubin 0.20 mg/dL (0.2-1.0) 02/17/25 05:10 AST 18 Units/L (15-37) 02/17/25 05:10 ALT 21 Units/L (12-78) 02/17/25 05:10 Alkaline Phosphatase 84 Units/L (46-116) 02/17/25 05:10 Total Protein 6.6 g/dL (6.4-8.2) 02/17/25 05:10 Albumin 2.0 g/dL (3.4-5.0) L 02/17/25 05:10 Globulin 4.6 g/dL (2.5-4.5) H 02/17/25 05:10 Albumin/Globulin Ratio 0.4 Ratio (1.1-2.1) L 02/17/25 05:10 Blood Type A POSITIVE 02/16/25 16:00 Antibody Screen Negative 02/16/25 16:00 Physical Exam Vital Signs: Vital Signs Temperature 98.1 F Temperature 98.4 F Pulse Rate 76 Pulse Rate 95 Pulse Rate 77 Pulse Rate 78 Pulse Rate 78 Pulse Rate 77 Pulse Rate 79 Pulse Rate 79 Pulse Rate 75 Pulse Rate 81 Pulse Rate 83 Pulse Rate 81 Pulse Rate 81 Pulse Rate 81 Pulse Rate 81 Pulse Rate 84 Pulse Rate 84 Pulse Rate 83 Pulse Rate 88 Pulse Rate 88 Pulse Rate 87 Pulse Rate 87 Pulse Rate 89 Pulse Rate 86 Pulse Rate 91 Respiratory Rate 13 Respiratory Rate 32 Respiratory Rate 16 Respiratory Rate 20 Respiratory Rate 22 Respiratory Rate 16 Respiratory Rate 19 Respiratory Rate 15 Respiratory Rate 15 Respiratory Rate 12 Respiratory Rate 20 Respiratory Rate 17 Respiratory Rate 15 Respiratory Rate 16 Respiratory Rate 18 Respiratory Rate 18 Respiratory Rate 17 Respiratory Rate 15 Respiratory Rate 35 Respiratory Rate 21 Respiratory Rate 16 Respiratory Rate 17 Respiratory Rate 16 Respiratory Rate 17 Respiratory Rate 14 Blood Pressure 116/53 Blood Pressure 123/56 O2 Sat by Pulse Oximetry 96 O2 Sat by Pulse Oximetry 97 O2 Sat by Pulse Oximetry 94 O2 Sat by Pulse Oximetry 94 O2 Sat by Pulse Oximetry 93 O2 Sat by Pulse Oximetry 93 O2 Sat by Pulse Oximetry 92 O2 Sat by Pulse Oximetry 94 O2 Sat by Pulse Oximetry 93 O2 Sat by Pulse Oximetry 95 O2 Sat by Pulse Oximetry 94 O2 Sat by Pulse Oximetry 92 O2 Sat by Pulse Oximetry 93 O2 Sat by Pulse Oximetry 93 O2 Sat by Pulse Oximetry 93 O2 Sat by Pulse Oximetry 93 O2 Sat by Pulse Oximetry 92 O2 Sat by Pulse Oximetry 93 O2 Sat by Pulse Oximetry 92 O2 Sat by Pulse Oximetry 92 O2 Sat by Pulse Oximetry 92 O2 Sat by Pulse Oximetry 92 O2 Sat by Pulse Oximetry 93 O2 Sat by Pulse Oximetry 92 O2 Sat by Pulse Oximetry 95 Assessment/Plan (1) Perforated diverticulum: Narrative Support Text: Continue current per surgery. Status: Acute (2) Diverticulitis: Narrative Support Text: See above. Status: Acute (3) Essential (primary) hypertension: Narrative Support Text: Resume appropriate home meds. Status: Chronic (4) Type 2 diabetes mellitus with hyperglycemia: Qualifiers: Diabetes mellitus usp insulin use: with usp use Qualified Code(s): E11.65 - Type 2 diabetes mellitus with hyperglycemia; Z79.4 - FCI (current) use of insulin Narrative Support Text: Sliding scale for now. May restart long-acting. Status: Chronic (5) Acquired hypothyroidism: Narrative Support Text: Resume home med. May need to do a formulary adjustment. Status: Chronic (6) Mixed hyperlipidemia: Narrative Support Text: Continue statin. Status: Chronic (7) GERD without esophagitis: Narrative Support Text: Stress ulcer prophylaxis. Status: Chronic (8) Morbid obesity due to excess calories: Narrative Support Text: No concerns for weight loss or weight gain at this time. That said outpatient issue at this moment Status: Chronic
[2025-02-18 05:41] LABS: BASOPHILS # (AUTO) 0.1 X10^3/uL (0.0-0.1); BASOPHILS % (AUTO) 0.5 % (0.2-1.0); EOSINOPHILS # (AUTO) 0.3 x10^3/uL (0.0-0.2); EOSINOPHILS % (AUTO) 1.8 % (0.9-2.9); HEMOGLOBIN 12.6 g/dL (12.0-16.0); LYMPHOCYTES # (AUTO) 1.9 X10^3/uL (1.3-2.9); LYMPHOCYTES % (AUTO) 11.5 % (21.0-51.0); MEAN CORPUSCULAR HEMOGLOBIN 30.4 pg (27.0-34.0); MEAN CORPUSCULAR HGB CONC 33.1 g/dL (33.0-35.0); MEAN CORPUSCULAR VOLUME 91.9 fL (80.0-100.0); MEAN PLATELET VOLUME 7.8 fL (7.4-11.0); MONOCYTES # (AUTO) 1.1 x10^3/uL (0.3-0.8); MONOCYTES % (AUTO) 6.4 % (0.0-13.0); NEUTROPHILS # (AUTO) 13.4 x10^3/uL (2.2-4.8); NEUTROPHILS % (AUTO) 79.8 % (42.0-75.0); PLATELET COUNT 295 X10^3/uL (150.0-450.0); RED BLOOD COUNT 4.14 X10^6/uL (3.5-5.4); WHITE BLOOD COUNT 16.8 X10^3/uL (3.6-10.0)
[2025-02-18 05:59] LABS: ALANINE AMINOTRANSFERASE 19 Units/L (12-78); ALBUMIN 2.1 g/dL (3.4-5.0); ALKALINE PHOSPHATASE 83 Units/L (46-116); ASPARTATE AMINO TRANSFERASE 13 Units/L (15-37); BLOOD UREA NITROGEN 8 mg/dL (7-18); CARBON DIOXIDE 26.5 mmol/L (21-32); CHLORIDE 101 mmol/L (98-107); COR CA(FOR HYPOALB) 10.5 mg/dL (8.5-10.1); COR NA(FOR HYPERGLY) 138 mmol/L (136-145); CREATININE 0.96 mg/dL (0.55-1.02); GLUCOSE 121 mg/dL (65-99); POTASSIUM 4.2 mmol/L (3.5-5.1); SODIUM 137 mmol/L (136-145); TOTAL PROTEIN 6.6 g/dL (6.4-8.2); eGFR NON BLACK RACES > 60 (>60)
[2025-02-18 06:07] LABS: BAND NEUTROPHILS % 5 % (0-10)
[2025-02-18 06:08] LABS: PLATELET MORPHOLOGY COMMENT NORMAL (NORMAL)
--- NOTE | 2025-02-18 10:57 | RAD ---
EXAM:KUBHISTORY:Diverticulitis perforationCOMPARISON:02/17/2025FINDINGS: .br.br nonobstructive. There is no evidence for mass, visceral enlargement or abnormal calcification.IMPRESSION:No specific abdominal abnormality demonstrated.THIS IS AN ELECTRONICALLY VERIFIED FINAL REPORT02/18/2025 10:54 AM - Electronically signed by Reynaldo Ruiz MD
--- NOTE | 2025-02-18 11:55 | DR.PROGNOT ---
HOSPITAL PROGRESS NOTE Progress Note for Day of: Progress Note Date: 02/18/25 Chief Complaint Chief Complaint: less abdominal pain today , c/o nausea , no vomiting . no BM today . KUB showed no free air . WBC 16.8, Glucose 148 , Ca 10.4 , normal BUN/Creat . afebrile . LLQ tenderness with mild rebound .. BS hypoactive . Past Medical Family Social History Past Med/Fam/Surg Hx: No changes since H&P Allergies: Allergies exenatide [From Bydureon BCise] Allergy (Verified 02/16/25 15:11) levothyroxine sodium [From Synthroid] Allergy (Verified 02/16/25 15:11) lisinopril Allergy (Verified 02/16/25 15:11) metformin Allergy (Verified 02/16/25 15:11) nitrofurantoin [From Macrodantin] Allergy (Verified 02/16/25 15:11) semaglutide [From Rybelsus] Allergy (Verified 02/16/25 15:11) sitagliptin [From Januvia] Allergy (Verified 02/16/25 15:11) Sulfa (Sulfonamide Antibiotics) [SULFA] Allergy (Verified 02/16/25 15:11) zolpidem [From Ambien] Allergy (Verified 02/16/25 15:11) liraglutide [From Victoza] Adverse Reaction (Verified 02/16/25 15:11) Vital Signs Vital Signs: Vital Signs Pulse Rate 67 Respiratory Rate 18 Respiratory Rate 15 Blood Pressure 110/55 O2 Sat by Pulse Oximetry 93 Physical Exam Oriented: Normal Eyes: Normal Ear: Normal Nose: Normal Throat: Normal Respiratory: Normal Cardiovascular: Normal GI:Auscultation: Decreased GI: Tenderness: LLQ (mild rebound .) Speech Pattern: Clear and Appropriate Laboratory and Diagnostics 02/18/25 05:04 02/18/25 05:04 Labs: 02/16/25 16:00 Blood Blood Culture - Preliminary 02/16/25 15:40 Blood Blood Culture - Preliminary Laboratory WBC 16.8 X10^3/uL (3.6-10.0) H 02/18/25 05:04 RBC 4.14 X10^6/uL (3.5-5.4) 02/18/25 05:04 Hgb 12.6 g/dL (12.0-16.0) 02/18/25 05:04 Hct 38.0 % (36.0-47.0) 02/18/25 05:04 MCV 91.9 fL (80.0-100.0) 02/18/25 05:04 MCH 30.4 pg (27.0-34.0) 02/18/25 05:04 MCHC 33.1 g/dL (33.0-35.0) 02/18/25 05:04 RDW 15.0 % (11.6-16.5) 02/18/25 05:04 Plt Count 295 X10^3/uL (150.0-450.0) 02/18/25 05:04 Plt Count Comment Adequate (ADEQUATE) 02/18/25 05:04 MPV 7.8 fL (7.4-11.0) 02/18/25 05:04 Neut % (Auto) 79.8 % (42.0-75.0) H 02/18/25 05:04 Lymph % (Auto) 11.5 % (21.0-51.0) L 02/18/25 05:04 [place] % (Auto) 6.4 % (0.0-13.0) 02/18/25 05:04 Eos % (Auto) 1.8 % (0.9-2.9) 02/18/25 05:04 Baso % (Auto) 0.5 % (0.2-1.0) 02/18/25 05:04 Neut # (Auto) 13.4 x10^3/uL (2.2-4.8) H 02/18/25 05:04 Lymph # (Auto) 1.9 X10^3/uL (1.3-2.9) 02/18/25 05:04 [place] # (Auto) 1.1 x10^3/uL (0.3-0.8) H 02/18/25 05:04 Eos # (Auto) 0.3 x10^3/uL (0.0-0.2) H 02/18/25 05:04 Baso # (Auto) 0.1 X10^3/uL (0.0-0.1) 02/18/25 05:04 Absolute Nucleated RBC 0.0 /100WBC 02/18/25 05:04 Total Counted 100 02/18/25 05:04 Neutrophils % (Manual) 71 % (39-76) 02/18/25 05:04 Band Neutrophils % 5 % (0-10) 02/18/25 05:04 Lymphocytes % (Manual) 19 % (13-43) 02/18/25 05:04 Monocytes % (Manual) 3 % (4-9) L 02/18/25 05:04 Eosinophils % (Manual) 2 % (0-6) 02/18/25 05:04 Plt Morphology Comment Normal (NORMAL) 02/18/25 05:04 RBC Morphology Normal (NORMAL) 02/18/25 05:04 PT 13.6 SECONDS (11.8-14.3) 02/16/25 16:00 INR Target Range - 02/16/25 16:00 INR 1.06 (0.8-1.3) 02/16/25 16:00 APTT 26.1 SECONDS (22.9-36.5) 02/16/25 16:00 PTT Comment - 02/16/25 16:00 Sodium 137 mmol/L (136-145) 02/18/25 05:04 Corrected Sodium 138 mmol/L (136-145) 02/18/25 05:04 Potassium 4.2 mmol/L (3.5-5.1) 02/18/25 05:04 Chloride 101 mmol/L (98-107) 02/18/25 05:04 Carbon Dioxide 26.5 mmol/L (21-32) 02/18/25 05:04 BUN 8 mg/dL (7-18) 02/18/25 05:04 Creatinine 0.96 mg/dL (0.55-1.02) 02/18/25 05:04 Est GFR (MDRD) Af Amer > 60 (>60) 02/18/25 05:04 Est GFR (MDRD) Non-Af > 60 (>60) 02/18/25 05:04 Glucose 121 mg/dL (65-99) H 02/18/25 05:04 POC Glucose (mg/dL) 104 mg/dL (65-99) H 02/17/25 20:04 Lactic Acid 1.1 mmol/L (0.4-2.0) 02/16/25 16:00 Calcium 9.0 mg/dL (8.5-10.1) 02/18/25 05:04 Corrected Calcium 10.5 mg/dL (8.5-10.1) H 02/18/25 05:04 Magnesium 2.0 mg/dL (2.0-2.9) 02/17/25 05:10 Total Bilirubin 0.20 mg/dL (0.2-1.0) 02/18/25 05:04 AST 13 Units/L (15-37) L 02/18/25 05:04 ALT 19 Units/L (12-78) 02/18/25 05:04 Alkaline Phosphatase 83 Units/L (46-116) 02/18/25 05:04 Total Protein 6.6 g/dL (6.4-8.2) 02/18/25 05:04 Albumin 2.1 g/dL (3.4-5.0) L 02/18/25 05:04 Globulin 4.5 g/dL (2.5-4.5) 02/18/25 05:04 Albumin/Globulin Ratio 0.5 Ratio (1.1-2.1) L 02/18/25 05:04 Blood Type A POSITIVE 02/16/25 16:00 Antibody Screen Negative 02/16/25 16:00 Assessment and Plan 1: acute ruptured diverticulitis , seems to be improving . same IV ABT , NPO , IVF . on clear liquid diet.. Problem Patient Problems: Patient Problems Perforated diverticulum (Acute) K57.80 Diverticulitis (Acute) K57.92
[2025-02-18] MEDS: ULTRAM PO PRN (19:45)
[2025-02-19 05:15] LABS: BASOPHILS # (AUTO) 0.1 X10^3/uL (0.0-0.1); BASOPHILS % (AUTO) 0.9 % (0.2-1.0); EOSINOPHILS # (AUTO) 0.2 x10^3/uL (0.0-0.2); EOSINOPHILS % (AUTO) 1.2 % (0.9-2.9); HEMOGLOBIN 12.3 g/dL (12.0-16.0); LYMPHOCYTES # (AUTO) 1.7 X10^3/uL (1.3-2.9); LYMPHOCYTES % (AUTO) 10.9 % (21.0-51.0); MEAN CORPUSCULAR HEMOGLOBIN 30.4 pg (27.0-34.0); MEAN CORPUSCULAR HGB CONC 33.2 g/dL (33.0-35.0); MEAN CORPUSCULAR VOLUME 91.5 fL (80.0-100.0); MEAN PLATELET VOLUME 7.6 fL (7.4-11.0); MONOCYTES # (AUTO) 1.4 x10^3/uL (0.3-0.8); MONOCYTES % (AUTO) 8.7 % (0.0-13.0); NEUTROPHILS # (AUTO) 12.5 x10^3/uL (2.2-4.8); NEUTROPHILS % (AUTO) 78.3 % (42.0-75.0); PLATELET COUNT 290 X10^3/uL (150.0-450.0); RED BLOOD COUNT 4.04 X10^6/uL (3.5-5.4); RED CELL DISTRIBUTION WIDTH 14.7 % (11.6-16.5)
[2025-02-19 05:28] LABS: ALANINE AMINOTRANSFERASE 15 Units/L (12-78); ALBUMIN 1.9 g/dL (3.4-5.0); ALKALINE PHOSPHATASE 75 Units/L (46-116); ASPARTATE AMINO TRANSFERASE 11 Units/L (15-37); BLOOD UREA NITROGEN 6 mg/dL (7-18); CALCIUM 8.9 mg/dL (8.5-10.1); CARBON DIOXIDE 28.9 mmol/L (21-32); CHLORIDE 101 mmol/L (98-107); COR CA(FOR HYPOALB) 10.6 mg/dL (8.5-10.1); COR NA(FOR HYPERGLY) 138 mmol/L (136-145); CREATININE 0.85 mg/dL (0.55-1.02); GLUCOSE 143 mg/dL (65-99); POTASSIUM 3.9 mmol/L (3.5-5.1); SODIUM 137 mmol/L (136-145); TOTAL PROTEIN 6.4 g/dL (6.4-8.2); eGFR NON BLACK RACES > 60 (>60)
--- NOTE | 2025-02-19 08:38 | DR.PROGNOT ---
HOSPITAL PROGRESS NOTE Progress Note for Day of: Progress Note Date: 02/19/25 Chief Complaint Chief Complaint: moderate abdominal pain today ,more with ambulation, c/o nausea , no vomiting . passing flatus ,no BM today . KUB showed no free air . WBC 16.0, Glucose 148 , Ca 10.4 , normal BUN/Creat . temp 99.8. LLQ tenderness with mild rebound .. BS + but hypoactive . Past Medical Family Social History Past Med/Fam/Surg Hx: No changes since H&P Allergies: Allergies exenatide [From Bydureon BCise] Allergy (Verified 02/16/25 15:11) levothyroxine sodium [From Synthroid] Allergy (Verified 02/16/25 15:11) lisinopril Allergy (Verified 02/16/25 15:11) metformin Allergy (Verified 02/16/25 15:11) nitrofurantoin [From Macrodantin] Allergy (Verified 02/16/25 15:11) semaglutide [From Rybelsus] Allergy (Verified 02/16/25 15:11) sitagliptin [From Januvia] Allergy (Verified 02/16/25 15:11) Sulfa (Sulfonamide Antibiotics) [SULFA] Allergy (Verified 02/16/25 15:11) zolpidem [From Ambien] Allergy (Verified 02/16/25 15:11) liraglutide [From Victoza] Adverse Reaction (Verified 02/16/25 15:11) Vital Signs Vital Signs: Vital Signs Pulse Rate 69 Respiratory Rate 13 Blood Pressure 134/64 O2 Sat by Pulse Oximetry 94 Physical Exam Oriented: Normal Eyes: Normal Ear: Normal Nose: Normal Throat: Normal Respiratory: Normal Cardiovascular: Normal GI:Auscultation: Decreased GI: Tenderness: LLQ (mild rebound .) Speech Pattern: Clear and Appropriate Laboratory and Diagnostics 02/19/25 04:50 02/19/25 04:50 Labs: 02/16/25 16:00 Blood Blood Culture - Preliminary 02/16/25 15:40 Blood Blood Culture - Preliminary Laboratory WBC 16.0 X10^3/uL (3.6-10.0) H 02/19/25 04:50 RBC 4.04 X10^6/uL (3.5-5.4) 02/19/25 04:50 Hgb 12.3 g/dL (12.0-16.0) 02/19/25 04:50 Hct 37.0 % (36.0-47.0) 02/19/25 04:50 MCV 91.5 fL (80.0-100.0) 02/19/25 04:50 MCH 30.4 pg (27.0-34.0) 02/19/25 04:50 MCHC 33.2 g/dL (33.0-35.0) 02/19/25 04:50 RDW 14.7 % (11.6-16.5) 02/19/25 04:50 Plt Count 290 X10^3/uL (150.0-450.0) 02/19/25 04:50 Plt Count Comment Adequate (ADEQUATE) 02/18/25 05:04 MPV 7.6 fL (7.4-11.0) 02/19/25 04:50 Neut % (Auto) 78.3 % (42.0-75.0) H 02/19/25 04:50 Lymph % (Auto) 10.9 % (21.0-51.0) L 02/19/25 04:50 [place] % (Auto) 8.7 % (0.0-13.0) 02/19/25 04:50 Eos % (Auto) 1.2 % (0.9-2.9) 02/19/25 04:50 Baso % (Auto) 0.9 % (0.2-1.0) 02/19/25 04:50 Neut # (Auto) 12.5 x10^3/uL (2.2-4.8) H 02/19/25 04:50 Lymph # (Auto) 1.7 X10^3/uL (1.3-2.9) 02/19/25 04:50 [place] # (Auto) 1.4 x10^3/uL (0.3-0.8) H 02/19/25 04:50 Eos # (Auto) 0.2 x10^3/uL (0.0-0.2) 02/19/25 04:50 Baso # (Auto) 0.1 X10^3/uL (0.0-0.1) 02/19/25 04:50 Absolute Nucleated RBC 0.0 /100WBC 02/19/25 04:50 Total Counted 100 02/18/25 05:04 Neutrophils % (Manual) 71 % (39-76) 02/18/25 05:04 Band Neutrophils % 5 % (0-10) 02/18/25 05:04 Lymphocytes % (Manual) 19 % (13-43) 02/18/25 05:04 Monocytes % (Manual) 3 % (4-9) L 02/18/25 05:04 Eosinophils % (Manual) 2 % (0-6) 02/18/25 05:04 Plt Morphology Comment Normal (NORMAL) 02/18/25 05:04 RBC Morphology Normal (NORMAL) 02/18/25 05:04 PT 13.6 SECONDS (11.8-14.3) 02/16/25 16:00 INR Target Range - 02/16/25 16:00 INR 1.06 (0.8-1.3) 02/16/25 16:00 APTT 26.1 SECONDS (22.9-36.5) 02/16/25 16:00 PTT Comment - 02/16/25 16:00 Sodium 137 mmol/L (136-145) 02/19/25 04:50 Corrected Sodium 138 mmol/L (136-145) 02/19/25 04:50 Potassium 3.9 mmol/L (3.5-5.1) 02/19/25 04:50 Chloride 101 mmol/L (98-107) 02/19/25 04:50 Carbon Dioxide 28.9 mmol/L (21-32) 02/19/25 04:50 BUN 6 mg/dL (7-18) L 02/19/25 04:50 Creatinine 0.85 mg/dL (0.55-1.02) 02/19/25 04:50 Est GFR (MDRD) Af Amer > 60 (>60) 02/19/25 04:50 Est GFR (MDRD) Non-Af > 60 (>60) 02/19/25 04:50 Glucose 143 mg/dL (65-99) H 02/19/25 04:50 POC Glucose (mg/dL) 104 mg/dL (65-99) H 02/17/25 20:04 Lactic Acid 1.1 mmol/L (0.4-2.0) 02/16/25 16:00 Calcium 8.9 mg/dL (8.5-10.1) 02/19/25 04:50 Corrected Calcium 10.6 mg/dL (8.5-10.1) H 02/19/25 04:50 Magnesium 2.0 mg/dL (2.0-2.9) 02/17/25 05:10 Total Bilirubin 0.20 mg/dL (0.2-1.0) 02/19/25 04:50 AST 11 Units/L (15-37) L 02/19/25 04:50 ALT 15 Units/L (12-78) 02/19/25 04:50 Alkaline Phosphatase 75 Units/L (46-116) 02/19/25 04:50 Total Protein 6.4 g/dL (6.4-8.2) 02/19/25 04:50 Albumin 1.9 g/dL (3.4-5.0) L 02/19/25 04:50 Globulin 4.5 g/dL (2.5-4.5) 02/19/25 04:50 Albumin/Globulin Ratio 0.4 Ratio (1.1-2.1) L 02/19/25 04:50 Blood Type A POSITIVE 02/16/25 16:00 Antibody Screen Negative 02/16/25 16:00 Assessment and Plan 1: acute ruptured diverticulitis , seems to be improving . same IV ABT , NPO , IVF . to keep on clear liquid diet.. repeat KUB . Problem Patient Problems: Patient Problems Perforated diverticulum (Acute) K57.80 Diverticulitis (Acute) K57.92
--- NOTE | 2025-02-19 09:31 | RAD ---
EXAM: Portable KUB HISTORY: Rule out abscess COMPARISON: 02/18/2025, CT abdomen 02/16/2025 FINDINGS: Abdominal detail is markedly limited on this nonstandard portable examination. The intestinal gas pattern does not suggest ileus or obstruction. No definite mass, abnormal calcifi cation or visceral enlargement is noted. IMPRESSION: No acute findings in the abdomen. See above. THIS IS AN ELECTRONICALLY VERIFIED FINAL REPORT 02/19/2025 9:27 AM - Electronically signed by Reynaldo Ruiz MD
[2025-02-20 05:14] LABS: BASOPHILS # (AUTO) 0.1 X10^3/uL (0.0-0.1); BASOPHILS % (AUTO) 0.9 % (0.2-1.0); EOSINOPHILS # (AUTO) 0.2 x10^3/uL (0.0-0.2); EOSINOPHILS % (AUTO) 1.5 % (0.9-2.9); HEMATOCRIT 36.6 % (36.0-47.0); HEMOGLOBIN 12.1 g/dL (12.0-16.0); LYMPHOCYTES # (AUTO) 1.7 X10^3/uL (1.3-2.9); MEAN CORPUSCULAR HEMOGLOBIN 30.1 pg (27.0-34.0); MEAN CORPUSCULAR VOLUME 91.3 fL (80.0-100.0); MEAN PLATELET VOLUME 7.6 fL (7.4-11.0); MONOCYTES # (AUTO) 1.2 x10^3/uL (0.3-0.8); MONOCYTES % (AUTO) 8.1 % (0.0-13.0); NEUTROPHILS # (AUTO) 11.2 x10^3/uL (2.2-4.8); NEUTROPHILS % (AUTO) 77.5 % (42.0-75.0); PLATELET COUNT 302 X10^3/uL (150.0-450.0); RED BLOOD COUNT 4.01 X10^6/uL (3.5-5.4); RED CELL DISTRIBUTION WIDTH 14.6 % (11.6-16.5); WHITE BLOOD COUNT 14.4 X10^3/uL (3.6-10.0)
[2025-02-20 05:31] LABS: ALANINE AMINOTRANSFERASE 18 Units/L (12-78); ALBUMIN 1.9 g/dL (3.4-5.0); ALKALINE PHOSPHATASE 77 Units/L (46-116); ASPARTATE AMINO TRANSFERASE 14 Units/L (15-37); BLOOD UREA NITROGEN 5 mg/dL (7-18); CALCIUM 8.8 mg/dL (8.5-10.1); CARBON DIOXIDE 27.8 mmol/L (21-32); CHLORIDE 102 mmol/L (98-107); COR CA(FOR HYPOALB) 10.5 mg/dL (8.5-10.1); COR NA(FOR HYPERGLY) 139 mmol/L (136-145); CREATININE 0.87 mg/dL (0.55-1.02); GLUCOSE 162 mg/dL (65-99); SODIUM 138 mmol/L (136-145); TOTAL PROTEIN 6.5 g/dL (6.4-8.2); eGFR NON BLACK RACES > 60 (>60)
[2025-02-20] MEDS: TRESIBA U-100 INSULIN SC SCH (08:00)
[2025-02-20] MEDS: FARXIGA PO SCH (08:28)
--- NOTE | 2025-02-20 08:59 | DR.PROGNOT ---
HOSPITAL PROGRESS NOTE Progress Note for Day of: Progress Note Date: 02/20/25 Chief Complaint Chief Complaint: less abdominal pain today ,mild nausea passing flatus ,had small BM today . KUB showed no free air . WBC 14.4, Glucose 148 , Ca 10.4 , normal BUN/Creat . temp 99.8. LLQ tenderness with mild rebound .. BS + but hypoactive . Past Medical Family Social History Past Med/Fam/Surg Hx: No changes since H&P Allergies: Allergies exenatide [From Bydureon BCise] Allergy (Verified 02/16/25 15:11) levothyroxine sodium [From Synthroid] Allergy (Verified 02/16/25 15:11) lisinopril Allergy (Verified 02/16/25 15:11) metformin Allergy (Verified 02/16/25 15:11) nitrofurantoin [From Macrodantin] Allergy (Verified 02/16/25 15:11) semaglutide [From Rybelsus] Allergy (Verified 02/16/25 15:11) sitagliptin [From Januvia] Allergy (Verified 02/16/25 15:11) Sulfa (Sulfonamide Antibiotics) [SULFA] Allergy (Verified 02/16/25 15:11) zolpidem [From Ambien] Allergy (Verified 02/16/25 15:11) liraglutide [From Victoza] Adverse Reaction (Verified 02/16/25 15:11) Vital Signs Vital Signs: Vital Signs Temperature 99.3 F Pulse Rate 67 Respiratory Rate 18 Blood Pressure 141/67 O2 Sat by Pulse Oximetry 95 Physical Exam Oriented: Normal Eyes: Normal Ear: Normal Nose: Normal Throat: Normal Respiratory: Normal Cardiovascular: Normal GI:Auscultation: Decreased GI: Tenderness: LLQ (mild rebound .) Speech Pattern: Clear and Appropriate Laboratory and Diagnostics 02/20/25 04:45 02/20/25 04:45 Labs: 02/16/25 16:00 Blood Blood Culture - Preliminary 02/16/25 15:40 Blood Blood Culture - Preliminary Laboratory WBC 14.4 X10^3/uL (3.6-10.0) H 02/20/25 04:45 RBC 4.01 X10^6/uL (3.5-5.4) 02/20/25 04:45 Hgb 12.1 g/dL (12.0-16.0) 02/20/25 04:45 Hct 36.6 % (36.0-47.0) 02/20/25 04:45 MCV 91.3 fL (80.0-100.0) 02/20/25 04:45 MCH 30.1 pg (27.0-34.0) 02/20/25 04:45 MCHC 33.0 g/dL (33.0-35.0) 02/20/25 04:45 RDW 14.6 % (11.6-16.5) 02/20/25 04:45 Plt Count 302 X10^3/uL (150.0-450.0) 02/20/25 04:45 Plt Count Comment Adequate (ADEQUATE) 02/18/25 05:04 MPV 7.6 fL (7.4-11.0) 02/20/25 04:45 Neut % (Auto) 77.5 % (42.0-75.0) H 02/20/25 04:45 Lymph % (Auto) 12.0 % (21.0-51.0) L 02/20/25 04:45 [place] % (Auto) 8.1 % (0.0-13.0) 02/20/25 04:45 Eos % (Auto) 1.5 % (0.9-2.9) 02/20/25 04:45 Baso % (Auto) 0.9 % (0.2-1.0) 02/20/25 04:45 Neut # (Auto) 11.2 x10^3/uL (2.2-4.8) H 02/20/25 04:45 Lymph # (Auto) 1.7 X10^3/uL (1.3-2.9) 02/20/25 04:45 [place] # (Auto) 1.2 x10^3/uL (0.3-0.8) H 02/20/25 04:45 Eos # (Auto) 0.2 x10^3/uL (0.0-0.2) 02/20/25 04:45 Baso # (Auto) 0.1 X10^3/uL (0.0-0.1) 02/20/25 04:45 Absolute Nucleated RBC 0.0 /100WBC 02/20/25 04:45 Total Counted 100 02/18/25 05:04 Neutrophils % (Manual) 71 % (39-76) 02/18/25 05:04 Band Neutrophils % 5 % (0-10) 02/18/25 05:04 Lymphocytes % (Manual) 19 % (13-43) 02/18/25 05:04 Monocytes % (Manual) 3 % (4-9) L 02/18/25 05:04 Eosinophils % (Manual) 2 % (0-6) 02/18/25 05:04 Plt Morphology Comment Normal (NORMAL) 02/18/25 05:04 RBC Morphology Normal (NORMAL) 02/18/25 05:04 PT 13.6 SECONDS (11.8-14.3) 02/16/25 16:00 INR Target Range - 02/16/25 16:00 INR 1.06 (0.8-1.3) 02/16/25 16:00 APTT 26.1 SECONDS (22.9-36.5) 02/16/25 16:00 PTT Comment - 02/16/25 16:00 Sodium 138 mmol/L (136-145) 02/20/25 04:45 Corrected Sodium 139 mmol/L (136-145) 02/20/25 04:45 Potassium 4.0 mmol/L (3.5-5.1) 02/20/25 04:45 Chloride 102 mmol/L (98-107) 02/20/25 04:45 Carbon Dioxide 27.8 mmol/L (21-32) 02/20/25 04:45 BUN 5 mg/dL (7-18) L 02/20/25 04:45 Creatinine 0.87 mg/dL (0.55-1.02) 02/20/25 04:45 Est GFR (MDRD) Af Amer > 60 (>60) 02/20/25 04:45 Est GFR (MDRD) Non-Af > 60 (>60) 02/20/25 04:45 Glucose 162 mg/dL (65-99) H 02/20/25 04:45 POC Glucose (mg/dL) 104 mg/dL (65-99) H 02/17/25 20:04 Lactic Acid 1.1 mmol/L (0.4-2.0) 02/16/25 16:00 Calcium 8.8 mg/dL (8.5-10.1) 02/20/25 04:45 Corrected Calcium 10.5 mg/dL (8.5-10.1) H 02/20/25 04:45 Magnesium 2.0 mg/dL (2.0-2.9) 02/17/25 05:10 Total Bilirubin 0.20 mg/dL (0.2-1.0) 02/20/25 04:45 AST 14 Units/L (15-37) L 02/20/25 04:45 ALT 18 Units/L (12-78) 02/20/25 04:45 Alkaline Phosphatase 77 Units/L (46-116) 02/20/25 04:45 Total Protein 6.5 g/dL (6.4-8.2) 02/20/25 04:45 Albumin 1.9 g/dL (3.4-5.0) L 02/20/25 04:45 Globulin 4.6 g/dL (2.5-4.5) H 02/20/25 04:45 Albumin/Globulin Ratio 0.4 Ratio (1.1-2.1) L 02/20/25 04:45 Blood Type A POSITIVE 02/16/25 16:00 Antibody Screen Negative 02/16/25 16:00 Assessment and Plan 1: acute ruptured diverticulitis , seems to be improving . same IV ABT , NPO , IVF . to keep on clear liquid diet.. repeat KUB . Problem Patient Problems: Patient Problems Perforated diverticulum (Acute) K57.80 Diverticulitis (Acute) K57.92
--- NOTE | 2025-02-20 09:51 | PCM.PROG ---
Progress Note Progress Note for Day of Date of Exam: 02/20/25 Subjective Subjective: Patient seen at bedside, no acute events overnight. She is currently admitted for acute diverticulitis with perforation. She is feeling better today, abdominal pain has improved. She reports some nausea. She denies diarrhea, had normal BM. Dr Limon has been seeing her. She is on clear liquid diet. KUB pending. She remains on IV antibiotics and fluids. Labs/imaging reviewed: -WBC 14.4 Hgb 12.1 Plt 302 K 4.0 BUN/Cr 5/0.87 -Blood Cx negative Plan: continue to monitor closely, serial abdominal exams. F/U KUB results. Follow surgery recommendations. Diet as per surgery. Continue IV antibiotics, fluids and pain control. Replace electrolytes as per protocol. Continue home medications. Monitor AM labs/imaging. Past Medical Family Social History Past Med/Fam/Surg Hx: No changes since H&P Allergies: Allergies exenatide [From Bydureon BCise] Allergy (Verified 02/16/25 15:11) levothyroxine sodium [From Synthroid] Allergy (Verified 02/16/25 15:11) lisinopril Allergy (Verified 02/16/25 15:11) metformin Allergy (Verified 02/16/25 15:11) nitrofurantoin [From Macrodantin] Allergy (Verified 02/16/25 15:11) semaglutide [From Rybelsus] Allergy (Verified 02/16/25 15:11) sitagliptin [From Januvia] Allergy (Verified 02/16/25 15:11) Sulfa (Sulfonamide Antibiotics) [SULFA] Allergy (Verified 02/16/25 15:11) zolpidem [From Ambien] Allergy (Verified 02/16/25 15:11) liraglutide [From Victoza] Adverse Reaction (Verified 02/16/25 15:11) Vital Signs and I&O's Vital Signs: Vital Signs Temperature 99.3 F Pulse Rate 67 Pulse Rate 67 Respiratory Rate 18 Blood Pressure 141/67 O2 Sat by Pulse Oximetry 97 O2 Sat by Pulse Oximetry 95 Intake and Output: Intake & Output 02/17/25 02/18/25 02/19/25 02/20/25 23:59 23:59 23:59 23:59 Intake Total 1452 / 1452 3587 / 3587 3379 / 3379 1379 / 1379 Balance 1452 / 1452 358 / 3587 337 / 337 1379 / 1379 Physical Exam Oriented: Normal Eyes: Normal Ear: Normal Nose: Normal Throat: Normal Respiratory: Normal Cardiovascular: Normal Auscultation: Bowel Sounds: Decreased Tenderness: LLQ (mild rebound .) Skin: Normal Musculoskeletal: Normal Psychiatric: Normal Mood Description: Calm Affect: Normal Speech Pattern: Clear and Appropriate Laboratory and Diagnostics 02/20/25 04:45 02/20/25 04:45 Labs: 02/16/25 16:00 Blood Blood Culture - Preliminary 02/16/25 15:40 Blood Blood Culture - Preliminary Laboratory WBC 14.4 X10^3/uL (3.6-10.0) H 02/20/25 04:45 RBC 4.01 X10^6/uL (3.5-5.4) 02/20/25 04:45 Hgb 12.1 g/dL (12.0-16.0) 02/20/25 04:45 Hct 36.6 % (36.0-47.0) 02/20/25 04:45 MCV 91.3 fL (80.0-100.0) 02/20/25 04:45 MCH 30.1 pg (27.0-34.0) 02/20/25 04:45 MCHC 33.0 g/dL (33.0-35.0) 02/20/25 04:45 RDW 14.6 % (11.6-16.5) 02/20/25 04:45 Plt Count 302 X10^3/uL (150.0-450.0) 02/20/25 04:45 Plt Count Comment Adequate (ADEQUATE) 02/18/25 05:04 MPV 7.6 fL (7.4-11.0) 02/20/25 04:45 Neut % (Auto) 77.5 % (42.0-75.0) H 02/20/25 04:45 Lymph % (Auto) 12.0 % (21.0-51.0) L 02/20/25 04:45 [place] % (Auto) 8.1 % (0.0-13.0) 02/20/25 04:45 Eos % (Auto) 1.5 % (0.9-2.9) 02/20/25 04:45 Baso % (Auto) 0.9 % (0.2-1.0) 02/20/25 04:45 Neut # (Auto) 11.2 x10^3/uL (2.2-4.8) H 02/20/25 04:45 Lymph # (Auto) 1.7 X10^3/uL (1.3-2.9) 02/20/25 04:45 [place] # (Auto) 1.2 x10^3/uL (0.3-0.8) H 02/20/25 04:45 Eos # (Auto) 0.2 x10^3/uL (0.0-0.2) 02/20/25 04:45 Baso # (Auto) 0.1 X10^3/uL (0.0-0.1) 02/20/25 04:45 Absolute Nucleated RBC 0.0 /100WBC 02/20/25 04:45 Total Counted 100 02/18/25 05:04 Neutrophils % (Manual) 71 % (39-76) 02/18/25 05:04 Band Neutrophils % 5 % (0-10) 02/18/25 05:04 Lymphocytes % (Manual) 19 % (13-43) 02/18/25 05:04 Monocytes % (Manual) 3 % (4-9) L 02/18/25 05:04 Eosinophils % (Manual) 2 % (0-6) 02/18/25 05:04 Plt Morphology Comment Normal (NORMAL) 02/18/25 05:04 RBC Morphology Normal (NORMAL) 02/18/25 05:04 PT 13.6 SECONDS (11.8-14.3) 02/16/25 16:00 INR Target Range - 02/16/25 16:00 INR 1.06 (0.8-1.3) 02/16/25 16:00 APTT 26.1 SECONDS (22.9-36.5) 02/16/25 16:00 PTT Comment - 02/16/25 16:00 Sodium 138 mmol/L (136-145) 02/20/25 04:45 Corrected Sodium 139 mmol/L (136-145) 02/20/25 04:45 Potassium 4.0 mmol/L (3.5-5.1) 02/20/25 04:45 Chloride 102 mmol/L (98-107) 02/20/25 04:45 Carbon Dioxide 27.8 mmol/L (21-32) 02/20/25 04:45 BUN 5 mg/dL (7-18) L 02/20/25 04:45 Creatinine 0.87 mg/dL (0.55-1.02) 02/20/25 04:45 Est GFR (MDRD) Af Amer > 60 (>60) 02/20/25 04:45 Est GFR (MDRD) Non-Af > 60 (>60) 02/20/25 04:45 Glucose 162 mg/dL (65-99) H 02/20/25 04:45 POC Glucose (mg/dL) 104 mg/dL (65-99) H 02/17/25 20:04 Lactic Acid 1.1 mmol/L (0.4-2.0) 02/16/25 16:00 Calcium 8.8 mg/dL (8.5-10.1) 02/20/25 04:45 Corrected Calcium 10.5 mg/dL (8.5-10.1) H 02/20/25 04:45 Magnesium 2.0 mg/dL (2.0-2.9) 02/17/25 05:10 Total Bilirubin 0.20 mg/dL (0.2-1.0) 02/20/25 04:45 AST 14 Units/L (15-37) L 02/20/25 04:45 ALT 18 Units/L (12-78) 02/20/25 04:45 Alkaline Phosphatase 77 Units/L (46-116) 02/20/25 04:45 Total Protein 6.5 g/dL (6.4-8.2) 02/20/25 04:45 Albumin 1.9 g/dL (3.4-5.0) L 02/20/25 04:45 Globulin 4.6 g/dL (2.5-4.5) H 02/20/25 04:45 Albumin/Globulin Ratio 0.4 Ratio (1.1-2.1) L 02/20/25 04:45 Blood Type A POSITIVE 02/16/25 16:00 Antibody Screen Negative 02/16/25 16:00 Plan (1) Perforated diverticulum: Status: Acute (2) Diverticulitis: Status: Acute (3) Essential (primary) hypertension: Status: Chronic (4) Type 2 diabetes mellitus with hyperglycemia: Status: Chronic Qualifiers: Diabetes mellitus long term acute care registered nurse insulin use: with snf use Qualified Code(s): E11.65 - Type 2 diabetes mellitus with hyperglycemia; Z79.4 - long term acute care registered nurse (current) use of insulin (5) Acquired hypothyroidism: Status: Chronic (6) Mixed hyperlipidemia: Status: Chronic (7) GERD without esophagitis: Status: Chronic (8) Morbid obesity due to excess calories: Status: Chronic
[2025-02-20] MEDS: NS IV SCH (15:11)
[2025-02-20] MEDS: ZOSYN IV SCH (15:11)
--- NOTE | 2025-02-20 17:05 | RAD ---
EXAM: KUB HISTORY: ruptured diverticulitis; COMPARISON: KUB dated 02/19/2025; CT dated 02/16/2025 TECHNIQUE: AP abdomen, supine FINDINGS: No abnormally distended bowel loops. No evidence of free peritoneal air on supine view. Clear lung bases. IMPRESSION: Nonobstructive bowel gas pattern. No visualized free peritoneal air. THIS IS AN ELECTRONICALLY VERIFIED FINAL REPORT 02/20/2025 4:56 PM - Electronically signed by Konrad Villa MD
[2025-02-21 03:57] VITALS: O2SAT 97
[2025-02-21 05:17] LABS: BASOPHILS # (AUTO) 0.1 X10^3/uL (0.0-0.1); BASOPHILS % (AUTO) 1.4 % (0.2-1.0); EOSINOPHILS # (AUTO) 0.3 x10^3/uL (0.0-0.2); EOSINOPHILS % (AUTO) 2.6 % (0.9-2.9); HEMATOCRIT 35.1 % (36.0-47.0); HEMOGLOBIN 11.7 g/dL (12.0-16.0); LYMPHOCYTES # (AUTO) 2.1 X10^3/uL (1.3-2.9); LYMPHOCYTES % (AUTO) 21.3 % (21.0-51.0); MEAN CORPUSCULAR HEMOGLOBIN 30.5 pg (27.0-34.0); MEAN CORPUSCULAR HGB CONC 33.4 g/dL (33.0-35.0); MEAN CORPUSCULAR VOLUME 91.4 fL (80.0-100.0); MEAN PLATELET VOLUME 7.5 fL (7.4-11.0); MONOCYTES # (AUTO) 1.1 x10^3/uL (0.3-0.8); MONOCYTES % (AUTO) 11.3 % (0.0-13.0); NEUTROPHILS # (AUTO) 6.3 x10^3/uL (2.2-4.8); NEUTROPHILS % (AUTO) 63.4 % (42.0-75.0); PLATELET COUNT 308 X10^3/uL (150.0-450.0); RED BLOOD COUNT 3.84 X10^6/uL (3.5-5.4); RED CELL DISTRIBUTION WIDTH 14.8 % (11.6-16.5); WHITE BLOOD COUNT 9.9 X10^3/uL (3.6-10.0)
[2025-02-21 05:36] LABS: ALANINE AMINOTRANSFERASE 16 Units/L (12-78); ALBUMIN 1.9 g/dL (3.4-5.0); ALKALINE PHOSPHATASE 68 Units/L (46-116); ASPARTATE AMINO TRANSFERASE 15 Units/L (15-37); BLOOD UREA NITROGEN 4 mg/dL (7-18); CALCIUM 8.6 mg/dL (8.5-10.1); CARBON DIOXIDE 27.2 mmol/L (21-32); CHLORIDE 102 mmol/L (98-107); COR CA(FOR HYPOALB) 10.3 mg/dL (8.5-10.1); COR NA(FOR HYPERGLY) 139 mmol/L (136-145); CREATININE 0.96 mg/dL (0.55-1.02); GLUCOSE 136 mg/dL (65-99); MAGNESIUM 1.6 mg/dL (2.0-2.9); POTASSIUM 3.5 mmol/L (3.5-5.1); SODIUM 138 mmol/L (136-145); TOTAL PROTEIN 6.2 g/dL (6.4-8.2); eGFR NON BLACK RACES > 60 (>60)
--- NOTE | 2025-02-21 06:50 | RAD ---
EXAMINATION: KUB HISTORY: ABDOMINAL PAIN ; DM, HTN, GERD SX: ORTHO . COMPARISON STUDY: KUB 02/20/2025 TECHNIQUE: 2 supine AP views of the abdomen and pelvis FINDINGS: Mild amount of bowel-gas and feces within the colon. Visualized soft tissue outlines and osseous str uctures appear intact. Mild curvature lumbar spine convexity toward the left. IMPRESSION: Mild amount of bowel-gas and feces. THIS IS AN ELECTRONICALLY VERIFIED FINAL REPORT 02/21/2025 6:47 AM - Electronically signed by Maddi Fink MD
[2025-02-21] MEDS ORDERED: CONSULT PHARMACY - POTASSIUM & MAGNESIUM XX SCH (07:00)
--- NOTE | 2025-02-21 08:07 | DR.PROGNOT ---
HOSPITAL PROGRESS NOTE Progress Note for Day of: Progress Note Date: 02/21/25 Chief Complaint Chief Complaint: less abdominal pain today ,mild nausea passing flatus ,had small BM today . KUB showed no free air . WBC 9.9 Glucose 148 , Ca 10.4 , normal BUN/Creat . temp 99.8. LLQ tenderness , NO wound tenderness.. BS + . Past Medical Family Social History Past Med/Fam/Surg Hx: No changes since H&P Allergies: Allergies exenatide [From Bydureon BCise] Allergy (Verified 02/16/25 15:11) levothyroxine sodium [From Synthroid] Allergy (Verified 02/16/25 15:11) lisinopril Allergy (Verified 02/16/25 15:11) metformin Allergy (Verified 02/16/25 15:11) nitrofurantoin [From Macrodantin] Allergy (Verified 02/16/25 15:11) semaglutide [From Rybelsus] Allergy (Verified 02/16/25 15:11) sitagliptin [From Januvia] Allergy (Verified 02/16/25 15:11) Sulfa (Sulfonamide Antibiotics) [SULFA] Allergy (Verified 02/16/25 15:11) zolpidem [From Ambien] Allergy (Verified 02/16/25 15:11) liraglutide [From Victoza] Adverse Reaction (Verified 02/16/25 15:11) Vital Signs Vital Signs: Vital Signs Temperature 97.9 F Pulse Rate 67 Respiratory Rate 14 Respiratory Rate 14 Respiratory Rate 18 Blood Pressure 134/59 O2 Sat by Pulse Oximetry 97 Physical Exam Oriented: Normal Eyes: Normal Ear: Normal Nose: Normal Throat: Normal Respiratory: Normal Cardiovascular: Normal GI:Auscultation: Decreased GI: Tenderness: LLQ (No rebound tenderness) Skin: Normal Musculoskeletal: Normal Psychiatric: Normal Mood Description: Calm Affect: Normal Speech Pattern: Clear and Appropriate Laboratory and Diagnostics 02/21/25 04:50 02/21/25 04:50 Labs: 02/16/25 16:00 Blood Blood Culture - Preliminary 02/16/25 15:40 Blood Blood Culture - Preliminary Laboratory WBC 9.9 X10^3/uL (3.6-10.0) 02/21/25 04:50 RBC 3.84 X10^6/uL (3.5-5.4) 02/21/25 04:50 Hgb 11.7 g/dL (12.0-16.0) L 02/21/25 04:50 Hct 35.1 % (36.0-47.0) L 02/21/25 04:50 MCV 91.4 fL (80.0-100.0) 02/21/25 04:50 MCH 30.5 pg (27.0-34.0) 02/21/25 04:50 MCHC 33.4 g/dL (33.0-35.0) 02/21/25 04:50 RDW 14.8 % (11.6-16.5) 02/21/25 04:50 Plt Count 308 X10^3/uL (150.0-450.0) 02/21/25 04:50 Plt Count Comment Adequate (ADEQUATE) 02/18/25 05:04 MPV 7.5 fL (7.4-11.0) 02/21/25 04:50 Neut % (Auto) 63.4 % (42.0-75.0) 02/21/25 04:50 Lymph % (Auto) 21.3 % (21.0-51.0) 02/21/25 04:50 [place] % (Auto) 11.3 % (0.0-13.0) 02/21/25 04:50 Eos % (Auto) 2.6 % (0.9-2.9) 02/21/25 04:50 Baso % (Auto) 1.4 % (0.2-1.0) H 02/21/25 04:50 Neut # (Auto) 6.3 x10^3/uL (2.2-4.8) H 02/21/25 04:50 Lymph # (Auto) 2.1 X10^3/uL (1.3-2.9) 02/21/25 04:50 [place] # (Auto) 1.1 x10^3/uL (0.3-0.8) H 02/21/25 04:50 Eos # (Auto) 0.3 x10^3/uL (0.0-0.2) H 02/21/25 04:50 Baso # (Auto) 0.1 X10^3/uL (0.0-0.1) 02/21/25 04:50 Absolute Nucleated RBC 0.0 /100WBC 02/21/25 04:50 Total Counted 100 02/18/25 05:04 Neutrophils % (Manual) 71 % (39-76) 02/18/25 05:04 Band Neutrophils % 5 % (0-10) 02/18/25 05:04 Lymphocytes % (Manual) 19 % (13-43) 02/18/25 05:04 Monocytes % (Manual) 3 % (4-9) L 02/18/25 05:04 Eosinophils % (Manual) 2 % (0-6) 02/18/25 05:04 Plt Morphology Comment Normal (NORMAL) 02/18/25 05:04 RBC Morphology Normal (NORMAL) 02/18/25 05:04 PT 13.6 SECONDS (11.8-14.3) 02/16/25 16:00 INR Target Range - 02/16/25 16:00 INR 1.06 (0.8-1.3) 02/16/25 16:00 APTT 26.1 SECONDS (22.9-36.5) 02/16/25 16:00 PTT Comment - 02/16/25 16:00 Sodium 138 mmol/L (136-145) 02/21/25 04:50 Corrected Sodium 139 mmol/L (136-145) 02/21/25 04:50 Potassium 3.5 mmol/L (3.5-5.1) 02/21/25 04:50 Chloride 102 mmol/L (98-107) 02/21/25 04:50 Carbon Dioxide 27.2 mmol/L (21-32) 02/21/25 04:50 BUN 4 mg/dL (7-18) L 02/21/25 04:50 Creatinine 0.96 mg/dL (0.55-1.02) 02/21/25 04:50 Est GFR (MDRD) Af Amer > 60 (>60) 02/21/25 04:50 Est GFR (MDRD) Non-Af > 60 (>60) 02/21/25 04:50 Glucose 136 mg/dL (65-99) H 02/21/25 04:50 POC Glucose (mg/dL) 104 mg/dL (65-99) H 02/17/25 20:04 Lactic Acid 1.1 mmol/L (0.4-2.0) 02/16/25 16:00 Calcium 8.6 mg/dL (8.5-10.1) 02/21/25 04:50 Corrected Calcium 10.3 mg/dL (8.5-10.1) H 02/21/25 04:50 Magnesium 1.6 mg/dL (2.0-2.9) L 02/21/25 04:50 Total Bilirubin 0.20 mg/dL (0.2-1.0) 02/21/25 04:50 AST 15 Units/L (15-37) 02/21/25 04:50 ALT 16 Units/L (12-78) 02/21/25 04:50 Alkaline Phosphatase 68 Units/L (46-116) 02/21/25 04:50 Total Protein 6.2 g/dL (6.4-8.2) L 02/21/25 04:50 Albumin 1.9 g/dL (3.4-5.0) L 02/21/25 04:50 Globulin 4.3 g/dL (2.5-4.5) 02/21/25 04:50 Albumin/Globulin Ratio 0.4 Ratio (1.1-2.1) L 02/21/25 04:50 Blood Type A POSITIVE 02/16/25 16:00 Antibody Screen Negative 02/16/25 16:00 Assessment and Plan 1: Subsiding acute sigmoid diverticulitis with sealed perforation. Will continue Cipro and Flagyl as outpatient and will follow in 1 week. Needs future colonoscopy. Problem Patient Problems: Patient Problems (Updated 02/17/25 @ 14:07 by Jj Tsai MD) Perforated diverticulum (Acute) K57.80 Diverticulitis (Acute) K57.92
[2025-02-21] MEDS: MAG-OX TAB PO SCH (08:54)
[2025-02-21] MEDS: K-DUR TAB 20 MEQ PO SCH (08:54)
[2025-02-21] MEDS ORDERED: K-DUR TAB 20 MEQ PO SCH (09:00)
[2025-02-21] MEDS ORDERED: D5 1/2 NS + KCL 20 MEQ/L 1,000 ML with MAGNESIUM SULFATE 50% INJ VIAL 1 G IV SCH (09:00)
[2025-02-21] MEDS ORDERED: MAG-OX TAB PO SCH (09:00)
[2025-02-21 09:19] VITALS: BP 142/63; PULSE 54; RESP 19; TEMP 98.5
== END 2025-02-21 12:00 | disposition home or self-care (01) | DRG 392 ==
LOC: ER 15:02 → ICU 15:02 → OBSVTOIN 17:29 → ICU 17:55
PROVIDERS: ADMIT Family Medicine; ATTEND Family Medicine
DX: Z68.42 Body mass index [BMI] 45.0-49.9, adult; E03.8 Other specified hypothyroidism; E78.2 Mixed hyperlipidemia; Z91.81 History of falling; Z01.810 Encounter for preprocedural cardiovascular examination; K21.9 Gastro-esophageal reflux disease without esophagitis; R94.31 Abnormal electrocardiogram [ECG] [EKG]; I10 Essential (primary) hypertension; E66.01 Morbid (severe) obesity due to excess calories; R10.84 Generalized abdominal pain; E11.65 Type 2 diabetes mellitus with hyperglycemia; Z79.4 Long term (current) use of insulin; K57.20 Diverticulitis of large intestine with perforation and abscess without bleeding